=== PATIENT | male | born 1940 | race Caucasian/White ===

== ENCOUNTER → 2024-11-25 09:06 | Outpatient (CLI) | payer MEDICARE, SELFPAY ==
--- NOTE | 2024-11-25 09:08 | DI.NM.S_ITS ---
PROCEDURE: NM MAVIS PERF SPECT R&S PHARM Rest and pharmacological stress myocardial perfusion SPECT with gated imaging and ejection fraction RADIOPHARMACEUTICAL: 9.9 mCi Tc-99m tetrafosmin IV at rest and 25.5 mCi Tc-99m tetrafosmin IV at peak effect of pharmacological stress. [id number] was performed. INDICATIONS: AFIB PQRS ATTESTATIONS: Measure 322 - Is this imaging test primarily performed on a low-risk surgery patient for preoperative evaluation within 30 days preceding their low-risk non-cardiac surgery? Low-risk surgery is defined as cardiac or myocardial infarction less than 1%, including (but not limited to) endoscopic procedures, superficial procedures, cataract surgery, and excisional breast surgery: Answer: No Measure 323 - Is this imaging test performed primarily for the monitoring of an asymptomatic patient who had percutaneous coronary intervention on the visit date or within 2 years of the visit date? Answer: No Measure 324 - Is this imaging test performed primarily for the initial detection and risk assessment on an asymptomatic, low coronary heart disease patient? Low CHD risk definition = clinicians should consider the maximum number of available patient factors used to estimate risk based on [place] (ATP III criteria), typically age, gender, diabetes, smoking status, and use of blood pressure medication, and integrate age appropriate estimates for missing elements, such as LDL or standard blood pressure. Answer: No TECHNIQUE: Radiopharmaceutical was injected at peak stress test, and also at rest. SPECT images were obtained. SPECT myocardial perfusion images were displayed in short axis, horizontal long axis, and vertical long axis views. Gated images were reviewed using [employer] software. COMPARISON: None. CARDIAC STRESS: A pharmacologic stress test was performed under the supervision of an attending staff, using an infusion of 0.4 mg of Lexiscan. Hemodynamic data: There is normal blood pressure and heart rate response to pharmacologic stress. Symptoms: The patient denied anginal chest pain. Aminophylline: None EKG: Baseline ECG demonstrated atrial fibrillation. Occasional PVCs noted. Occasional PVCs persisted with the Lexiscan infusion. No ventricular tachycardia noted. No ischemic changes present.. FINDINGS: Raw data: There is good myocardial uptake of radiotracer. No significant motion artifacts. Gcfm-bp-qdrev ratio is 0.33 (normal is less than 0.38 for tetrafosmin tracer). Left ventricle function: Gated images demonstrate normal left ventricular wall thickening. No segmental wall motion abnormalities. No transient ischemic dilation; TID is 1.06 (normal less than 1.3). Left ventricle stress end diastolic volume is 165 mL. Left ventricle stress ejection fraction is 44% with no segmental wall motion abnormalities; normal range is above 45%. Myocardial perfusion: Rest images had mild hypoperfusion in the basal to mid inferior segment. No other perfusion defects noted. Stress images demonstrated improved perfusion in the basal to mid inferior segment. No other perfusion defects noted. No prone images obtained. This most likely represents artifact. IMPRESSION: 1. Negative Lexiscan myocardial perfusion scan for ischemia. 2. Mild hypoperfusion in the inferior wall most likely represents artifact but a nontransmural infarction cannot be completely excluded given the lack of prone images. Dictated by: Micah Butler M.D. on 11/25/2024 at 16:29 Approved by: Micah Butler M.D. on 11/25/2024 at 16:33
== END ==
LOC: NUCM 09:08
PROVIDERS: PCP Student in an Organized Health Care Education/Training Program; Referring Provider Student in an Organized Health Care Education/Training Program; Visit Provider Student in an Organized Health Care Education/Training Program
DX: I48.91 Unspecified atrial fibrillation (principal)
CPT/HCPCS: 78452; 93017; A9502; J2785